=== PATIENT | female | born 1995 | race Caucasian/White ===

== ENCOUNTER 2017-07-09 21:16 | Emergency (ER) | payer OTHER ==
[~2017-07-09] VITALS: Ht 156.2 cm; Wt 61.9 kg
[2017-07-09 21:18] VITALS: BP 134/74; PULSE 70; TEMP 36.9; O2SAT 99; Ht 156.2 cm; Wt 61.9 kg
[2017-07-09] MEDS ORDERED: FLUC150T PO (21:49)
[2017-07-09] MEDS ORDERED: PRED10TA PO (21:49)
[2017-07-09] MEDS ORDERED: AMOX875T PO (21:49)
[2017-07-09] MEDS ORDERED: LAMO25TA PO ×2 (21:49)
[2017-07-09] MEDS ORDERED: NYSS/ PO (21:49)
--- NOTE | 2017-07-09 23:33 | EMERGENCY ROOM VISIT NOTE ---
History First contact with patient: 21:22 Chief Complaint: OTHER COMPLAINT Stated Complaint: LARGE TONGUE,MOUTH RELATED ISSUE History of Present Illness The patient is a 22 year old female who presents to the Emergency Room with complaints of mouth pain for the past few days. The patient feels like her tongue is swollen and irritated on the sides. She has not had recent fever or chills. No sore throat, coughing, or wheezing. The patient went to 2 different urgent care clinic yesterday for this complaint and was given prescriptions for Augmentin, Diflucan, nystatin, and prednisone. 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 She states this did not improve her symptoms or she came to the ER. She is not having difficulty breathing or swallowing. No rash, chest pain, chest tightness, shortness of breath, or abdominal pain. She does wear braces and believes that she has a cavity. She does have regular dental care. No other complaints, and rates her discomfort a 4/10. Review of Systems More than 10 systems were reviewed and otherwise negative with the exception of history of present illness. Past Medical/Surgical History Medical Problems: (1) No significant past medical history Family History No pertinent family history Social History Smoking Status: Current Some Day Smoker Alcohol Use: occasionally Drug Use: none Marital Status: single Housing Status: lives with roommate Occupation Status: [employer] student Current/Historical Medications Scheduled Amoxicillin & Pot Clavulanate (Augmentin 875-125 mg), 1 TAB PO BID Fluconazole (Diflucan), 150 MG PO DAILY Lamotrigine (Lamictal), 25 MG PO QAM Lamotrigine (Lamictal), 50 MG PO QPM Nystatin (Nystatin Suspension), 5 ML PO Q8 Prednisone Tab (Prednisone), 10 MG PO TAPER UD Physical Exam Vital Signs Date Time Temp Pulse Resp B/P (MAP) Pulse Ox O2 Delivery O2 Flow Rate FiO2 07/09/17 21:18 36.9 70 16 134/74 99 Room Air Physical Exam VITALS: Vitals are noted on the nurse's note and reviewed by myself. Vital signs stable. GENERAL: Well-developed, well-nourished, anxious female, who is in no acute distress and resting comfortably. Patient is cooperative with the examination. HEAD: Normocephalic atraumatic. EARS: External ear normal. External auditory canals clear, tympanic membranes pearly swartz without erythema or effusion bilaterally. EYES: Pupils equal round and reactive to light and accommodation. Conjunctivae without injection, sclerae without icterus. Extraocular movements intact. NOSE: Patent, turbinates without inflammation or discharge. MOUTH: Mucous membranes moist. Tonsils are not enlarged. Pharynx without erythema, blood, or exudate. Uvula midline. Airway patent. No evidence of Demetrius's. Dentition appears in good repair without abscess or gum line erythema. Tongue without lesions or discoloration. Tongue appears essentially normal NECK: Supple without nuchal rigidity. No lymphadenopathy. No thyromegaly. Cervical spine is nontender. HEART: Regular rate and rhythm without murmurs gallops or rubs. LUNGS: Clear to auscultation bilaterally without wheezes, rales or rhonchi. No retractions or accessory muscle use. Medical Decision & Procedures ED Course Physical exam and history were performed. Nursing notes, EMR, and Medication List were personally reviewed. Patient appears to have the sensation that her tongue swelling. On examination she appears well and certainly is not toxic. This has been going on for a few days and I do not see signs of angioedema or anaphylaxis. The patient has multiple medications that appear appropriate for treatment. She is very anxious , and only took one dose of the antibiotic before coming to the emergency department. I explained the importance of taking her medications, particularly the prednisone, for ongoing care. Her symptoms could be the result of allergic reaction to Lamictal, and I asked her to stop this until she can discuss changing the medication with her prescriber of record. The patient was otherwise instructed to follow with [facility] for further care and management. She was otherwise invited back to the ER with any new, worsening, or concerning symptoms. The chart was completed utilizing [employer] Speech Voice Recognition Software. Grammatical errors, random word insertions, pronoun errors, and incomplete sentences are an occasional consequence of this system due to software limitations, ambient noise, and hardware issues. Any formal questions or concerns about the content, text, or information contained within the body of this dictation should be directly addressed to the provider for clarification. . Medical Decision Differential diagnosis: Etiologies such as allergic reaction, medication reaction, glossitis, Demetrius, abscess, anaphylaxis, urticaria, Wilkins-Lc syndrome, toxic epidermal necrolysis, erythema multiforme, cellulitis, as well as others were entertained. Impression Primary Impression: Unspecified condition of the tongue Departure Information Dispostion Home / Self-Care Condition GOOD Forms HOME CARE DOCUMENTATION FORM, IMPORTANT VISIT INFORMATION Patient Instructions My [facility] Additional Instructions You were seen and evaluated today on an emergency basis only. This is not a substitute for, or an effort to provide, complete comprehensive medical care. It is not possible to recognize and treat all injuries or illnesses in a single emergency department visit. For this reason it is recommended that you followup with [facility] in the next 1-2 days for recheck. Continue your medications as previously prescribed. You are welcome to return to the emergency department anytime with new, worsening, or concerning symptoms.
== END 2017-07-09 22:03 | disposition home or self-care (01) ==
LOC: C.EDB 21:16 → C.EDD 22:03
DX: K14.8 Other diseases of tongue (principal); F17.210 Nicotine dependence, cigarettes, uncomplicated; Z79.899 Other long term (current) drug therapy